=== PATIENT | female | born 1935 ===

== ENCOUNTER 2019-06-02 12:47 | Outpatient (CLI) | payer MEDICARE, OTHER ==
--- NOTE | 2019-06-02 17:00 | Consultation ---
DATE OF CONSULTATION: 06/02/2019 CONSULTING PHYSICIAN: Hugh Zendejas M.D. CHIEF COMPLAINT: Abdominal pain. HISTORY OF PRESENT ILLNESS: This is a pleasant 84-year-old female with multiple medical problems, which I will dictate in a second who came to office with complaint of abdominal pain. Apparently, this pain has been chronic going for a while mainly in the periumbilical region. The patient has also complained of constipation, which was also going on for a while. Complained of some weight loss, but cannot quantify how much, how many pounds. Complained of some nausea, vomiting waking up in the middle of night with abdominal pain, abdominal bloating. Cannot tolerate any salads and vegetables, makes it worse. Denies eating any greasy food that makes it worse. 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 Agustín Navarrete at [facility]. PAST MEDICAL HISTORY: Significant for. 1. Diabetes for over 15 years. 2. History of hypertension. 3. Hypothyroidism. 4. Chronic GERD. 5. Hypercholesterolemia. MEDICATIONS: The patient has a long medication list. Please refer to the list. PAST SURGICAL HISTORY: Appendectomy 50 years ago. SOCIAL HISTORY: The patient denies any tobacco, alcohol, or drug abuse. REVIEW OF SYSTEMS: A 10-point review of systems was performed and pertinent positives in HPI. PHYSICAL EXAMINATION: GENERAL: A well-developed female, in no acute distress. HEENT: Normocephalic and atraumatic. Sclerae anicteric. NECK: Supple. No evidence of obvious lymphadenopathy. CARDIOVASCULAR: Regular rate and rhythm. Plus S1-S2. LUNGS: Decreased breath sounds bilaterally based on the supine exam. ABDOMEN: Soft. There is a scar in the right lower quadrant. There is tenderness around the scar. There is tenderness diffusely. No rebound. No guarding. No peritoneal sign. EXTREMITIES: No cyanosis, no clubbing, no edema. ASSESSMENT AND PLAN: This is an 84-year-old female with the above complaints. Differential diagnosis at this time will be SIBO, chronic constipation, fatty liver, rule out gallstones and gallbladder disease. Plan at this time, we are going to give the patient Xifaxan for two weeks for possible SIBO. Treat the constipation. We are going to try motility first given the patient has diabetes and possible component of diabetic gastroparesis and if motility does not work, the patient to be given Linzess 145. Meanwhile, we are going to also order abdominal ultrasound to rule out gallbladder disease. The patient was offered to have laboratory done, but she had it few months ago where she had the same symptoms, so we are going to wait until above treatment works. Otherwise, we are going to do a set of labs and consider doing another endoscopy if needed. Hugh Zendejas M.D. DR: LIZA JOB#: [id number] CC:
[2019-06-03] MEDS ORDERED: CRESTOR10 M2 ORAL (09:49)
[2019-06-03] MEDS ORDERED: SYNTHROID100 MCG ORAL (09:49)
[2019-06-03] MEDS ORDERED: ALBUTEROL SULF8.5 GM INH (09:49)
[2019-06-03] MEDS ORDERED: MONTELUKAST SOD10 MG ORAL (09:49)
[2019-06-03] MEDS ORDERED: VITAMIN B COMP1 EAC2 ORAL (09:49)
[2019-06-03] MEDS ORDERED: ISOSORBIDE DINI30 MG ORAL (09:49)
[2019-06-03] MEDS ORDERED: AVAPRO300 MG ORAL (09:49)
[2019-06-03] MEDS ORDERED: DEXILANT60 MG ORAL (09:49)
[2019-06-03] MEDS ORDERED: VESICARE10 MG ORAL (09:49)
[2019-06-03] MEDS ORDERED: KLONOPIN0.5 MG ORAL (09:49)
[2019-06-03] MEDS ORDERED: ACTONEL35 MG ORAL (09:49)
[2019-06-03] MEDS ORDERED: NITROSTAT0.3 MG SL (09:49)
[2019-06-03] MEDS ORDERED: METFORMIN HCL500 M1 ORAL (09:49)
[2019-06-03] MEDS ORDERED: METOPROLOL SUCC50 MG ORAL (09:49)
[2019-06-03] MEDS ORDERED: VOLTAREN100 G1 TP (09:50)
[2019-06-03] MEDS ORDERED: COQ-10100 M1 PO (09:50)
[2019-06-03] MEDS ORDERED: PROBIOTIC1 EAC2 PO (09:50)
[2019-06-03] MEDS ORDERED: MAGNESIUM GLUCO30 MG PO (09:50)
[2019-06-03] MEDS ORDERED: FISH OIL CAP1000 MG ORAL (09:50)
[2019-06-03] MEDS ORDERED: VITAMIN D22000 UNIT PO (09:50)
[2019-06-03] MEDS ORDERED: CALCIUM500 M3 PO (09:50)
== END 2019-06-02 14:47 | disposition home or self-care (01) ==
LOC: PAN 12:47
DX: R10.9 Unspecified abdominal pain (principal); E11.9 Type 2 diabetes mellitus without complications; I10 Essential (primary) hypertension; E03.9 Hypothyroidism, unspecified; K21.9 Gastro-esophageal reflux disease without esophagitis; E78.00 Pure hypercholesterolemia, unspecified; K59.00 Constipation, unspecified; R63.4 Abnormal weight loss; Z90.89 Acquired absence of other organs
CPT/HCPCS: G0463